=== PATIENT | male | born 1975 | race Caucasian/White ===

== ENCOUNTER 2019-08-12 14:52 | Emergency (ER) | payer SELFPAY ==
[2019-08-12 14:58] VITALS: BMI 31.1
--- NOTE | 2019-08-12 15:40 | PDOC ---
Attending Attestation - Resident Resident Name: Jaron Jackson - ED Attending Attestation I have performed the following: I have examined & evaluated the patient, The case was reviewed & discussed with the resident, I agree w/resident's findings & plan, Exceptions are as noted - HPI HPI: 08/12/19 15:35 44y M fell from a 10 ft ladder to the floor, landing on his feet without any loc , but notes the ladder fell hit him on his head. Denies any loc, dizziness, n/v , headache, vision changes, Pt complaining of pain to his lip because he clipped the ladder on his lip on the way down but landed on his L leg denies any neck pain, back pain, headache, n/v, vision changes, dental pain, abd pain, chest pain. hip pain. GENERAL: The patient is awake, alert, and fully oriented, Nontoxic - in no acute distress. HEAD: Normocephalic, atraumatic. EYES: extraocular movements intact, sclera anicteric, conjunctiva clear. ENT: Normal voice, Moist mucous membranes. NECK: Normal range of motion, supple, no focal midline tenderness in the cervical thoracic or lumbar spine LUNGS: Breath sounds equal, clear to auscultation bilaterally. No wheezes, no rhonchi, no rales. HEART: Regular rate and rhythm, normal S1 and S2 without murmur, rub or gallop. ABDOMEN: Soft, nontender, No guarding, no rebound. No CVA tenderness EXTREMITIES: Normal range of motion, no edema. Normal range of motion of bilateral hips, bilateral knees, mild diffuse tenderness and swelling in the Left ankle/hindfoot. Mild tenderness and bruising noted in the proximal R tib- fib NEUROLOGICAL: No facial assymetry, Normal speech, PSYCH: Normal mood, normal affect. SKIN: Warm, Dry, normal turgor, X-ray consistent with calcaneal fracture Will obtain CT of the heel. Bilateral tib fibs are normal without signs of fracture We will give the patient Percocet for pain Will discuss with Ortho - Medical Decision Making 08/12/19 18:[address] is consistent with a comminuted and mildly displaced calcaneal fracture. The patient now has significant edema and tenderness to palpation on the right medial aspect of the proximal tibia, there is also significant ecchymosis and tenderness seems much worse than earlier. His x-ray appeared to be negative however will obtain a CT of his proximal tibia and knee to rule out fracture based on his mechanism.
--- NOTE | 2019-08-12 16:06 | PDOC ---
History of Present Illness - General Chief Complaint: Injury Stated Complaint: LT FOOT INJURY Time Seen by Provider: 08/12/19 15:09 - History of Present Illness Initial Comments: 08/12/19 16:00 44 y/o M denies any significant past medical hx presents to the emergency room after falling from a ten foot ladder. he slipped of the ladder and landed on both feet. The ladder hit him on the right side of his head. He was able to ambulate but needed assistance to his car and drove himself to the ED. He denies striking his head on the floor, LOC , nausea, vomiting, headache, loss of sensation.He has pain primarily in his left foot, and some bruises on both shins bilaterally, Pain in his left foot is an 8/10 exacerbated by movement or bearing weight. Past History - Past Medical History Allergies/Adverse Reactions: Allergies Allergy/AdvReac Type Severity Reaction Status Date / Time No Known Allergies Allergy Verified 08/12/19 14:58 Home Medications: Ambulatory Orders Oxycodone HCl/Acetaminophen [Percocet 5-325 mg Tablet] 1 tab PO TID PRN #20 tablet MDD 3 tabs 08/12/19 COPD: No - Psycho Social/Smoking Cessation Hx Smoking History: Current every day smoker Information on smoking cessation initiated: No Review of Systems - Review of Systems Constitutional: No: Chills, Fever HEENTM: No: Eye Pain, Blurred Vision Respiratory: No: Cough, Shortness of Breath Cardiac (ROS): No: Chest Pain, Lightheadedness ABD/GI: No: Nausea, Vomiting : No: Burning, Dysuria Musculoskeletal: Yes: Joint Pain. No: Back Pain Integumentary: Yes: Bruising Neurological: No: Headache, Numbness *Physical Exam - Vital Signs Last Vital Signs Temp Pulse Resp BP Pulse Ox 98.1 F 86 18 123/81 99 08/12/19 14:54 08/12/19 14:54 08/12/19 14:54 08/12/19 14:54 08/12/19 14:54 - Physical Exam 08/12/19 16:07 PE: GENERAL: Awake, alert, and fully oriented, moderate distress HEAD: No signs of trauma, normocephalic, atraumatic EYES: PERRLA, EOMI, sclera anicteric, conjunctiva clear ENT: Auricles normal inspection, hearing grossly normal, nares patent, oropharynx clear without exudates. Moist mucosa. bruise on the upper lip NECK: Normal ROM, supple, no lymphadenopathy, JVD, or masses LUNGS: No distress, speaks full sentences, clear to auscultation bilaterally HEART: Regular rate and rhythm, normal S1 and S2, no murmurs, rubs or gallops, peripheral pulses normal and equal bilaterally. ABDOMEN: Soft, nontender, normoactive bowel sounds. No guarding, no rebound. No masses BACK: no spinal/ paraspinal tenderness EXTREMITIES : swollen left ankle, tenderness (heel, medial malleolus, along 3rd and 4th metatarsal). tender areas erythematous. peripheral pedal pulses 2+ bilaterally. NEUROLOGICAL: Cranial nerves II through XII grossly intact. Normal speech, no focal sensorimotor deficits SKIN: Warm, Dry, normal turgor, no rashes or lesions noted ED Treatment Course - LABORATORY CBC & Chemistry Diagram: 08/12/19 17:25 08/12/19 17:25 - RADIOLOGY Radiology Studies Ordered: Category Date Time Status FOOT-LEFT [RAD] Stat Radiology 08/12/19 15:42 Ordered FOOT-RIGHT [RAD] Stat Radiology 08/12/19 15:42 Ordered LEG TIB/FIB-LEFT [RAD] Stat Radiology 08/12/19 15:42 Ordered LEG TIB/FIB-RIGHT [RAD] Stat Radiology 08/12/19 15:42 Ordered - Medications Given in the ED: ED Medications Discontinued Medications Generic Name Dose Route Start Last Admin Trade Name Freq PRN Reason Stop Dose Admin Oxycodone/Acetaminophen 1 combo 08/12/19 15:42 08/12/19 15:52 Percocet 5/325 - PO 08/12/19 15:43 1 combo ONCE ONE Administration Medical Decision Making - Medical Decision Making 08/12/19 16:10 44 y/o M denies any significant past medical hx presents to the emergency room after falling from a ten foot ladder. fracture possible x-rays of both feet and tib-fib bilaterally Meds: 1 tab PO percocet for pain 08/12/19 19:13 x-rays calcaneus deformity could indicate fracture with ankle swelling no acute right foot pathology Intact tibial and fibula Pt given an additional 6mg of IV morphine for pain control doing a lot better after that pain osborne lower extremity CT read pending addtional views of tib/fibula ordere because of incresed swelling and ecchymosis around right proximal tibia still neurovascularly intact 2+ pedal pulses bilaterally. 08/12/19 20:51 lower extremity C Heavily comminuted, triplanar fracture of the left calcaneus, which is extremely fragmented in the region of the calcaneal beak and in the region of subarticular bone associated with the sinus tarsi and the posterior talar articulation. Loss of Boehler's angle noted. Fracture lines are also present along the posterior and inferior aspect of the calcaneus but with minimal displacement. No visible rupture of the Achilles tendon or of the plantar fascia. No evidence of tarsal coalition. The ankle mortise is stable in appearance. No midfoot or forefoot fracture. anteromedial aspect of right tibia has hematoma in subcutaneous fat, no air / gas present. 08/12/19 20:[address] bishop contacted for consult. 08/12/19 21:07 Dr. Bishop recommends transfer to [facility] for higher level of care as well as posterior splint before transfer [facility] contacted 08/12/19 21:10 Dr. Castaneda at [facility] said transfer is not necessary, recommends splinting and crutches, and orthopedic follow up for patient within a week. 08/12/19 22:31 Pt put in posterior splint. able to ambulate somewhat on crutches, but still complaining of 8/10 pain that h is preventing him from sleeping Declines to be admitted for pain control at this time. Additional meds 6mg morphine then 4mg morphine IV 4hrs later 08/12/19 23:00 30mg toradol IV. 10mg oxycodone PO reassess 08/12/19 23:20 Pt tolerating pain better willing to go home ambulated on crutches satisfactorily discharging home with po medications Discharge - Discharge Information Problems reviewed: Yes Clinical Impression/Diagnosis: Calcaneus fracture Qualifiers: Encounter type: initial encounter Calcaneus location: unspecified portion of calcaneus Fracture type: closed Fracture alignment: nondisplaced Laterality: left Qualified Code(s): S92.002A - Unspecified fracture of left calcaneus, initial encounter for closed fracture Condition: Stable Disposition: HOME - Admission No - Additional Discharge Information Prescriptions: Oxycodone HCl/Acetaminophen [Percocet 5-325 mg Tablet] 1 tab PO TID PRN #20 tablet MDD 3 tabs PRN Reason: Pain - Follow up/Referral - Patient Discharge Instructions Patient Printed Discharge Instructions: DI for Calcaneus Fracture Additional Instructions: You were seen in the ER after a fall and found to have a calcaneus fracture YOur leg has been placed in a splint. make sure to keep it dry Do not bear weight on the affected leg and use crutches to move around you have been prescribed pain medications. Take as prescribed Follow up with an orthopedic surgeon this tomorrow to set up further consultation for possible surgery Keep leg elevated when at rest. preferably above your heart. Ice the affected area\ RETURN if your foot becomes numb fevers, chills the pain is getting worse. - Post Discharge Activity
[2019-08-12] MEDS ORDERED: morphine CARPU-JECT 4 MG/1 ML DISP.SYRIN IVPUSH ONE ×2 (16:56→20:58)
[2019-08-12] MEDS ORDERED: morphine SULFATE 4 MG/ML VIAL ONE ×2 (17:17→21:00)
[2019-08-12] MEDS ORDERED: MORPHINE SULFATE 2 MG/ML VIAL ONE (17:18)
[2019-08-12 17:43] LABS: BASO % 0.3 % (0-2.0); EOS % 0.7 % (0-4.5); HEMATOCRIT 46.2 % (35.4-49); HEMOGLOBIN 15.7 GM/dL (11.7-16.9); LYMPH % 12.4 % (8-40); MCH 31.8 pg (25.7-33.7); MCHC 33.9 g/dl (32.0-35.9); MEAN CELL VOLUME 93.9 fl (80-96); MEAN PLT VOLUME 7.5 fl (7.5-11.1); MONO % 4.7 % (3.8-10.2); NEUT % 81.9 % (42.8-82.8); PLATELET COUNT 321 K/MM3 (134-434); RBC 4.92 M/mm3 (4.00-5.60); RDW 13.3 % (11.9-15.9); WHITE BLOOD COUNT 15.4 K/mm3 (4.0-10.0)
[2019-08-12 18:03] LABS: INR 0.97 (0.83-1.09); PROTHROMBIN TIME (PATIENT) 11.4 SEC (9.7-13.0)
[2019-08-12 18:05] LABS: ACTIVATED PTT 31.5 SECONDS (25.2-36.5)
[2019-08-12 18:20] LABS: ALBUMIN 4.2 g/dl (3.4-5.0); BILIRUBIN,TOTAL 0.4 mg/dL (0.2-1); CALCIUM 9.3 mg/dL (8.5-10.1); POTASSIUM 4.1 mmol/L (3.5-5.1); TOT PROT 7.6 g/dl (6.4-8.2)
[2019-08-12] MEDS ORDERED: KETOROLAC TROMETHAMINE 30 MG/1 ML VIAL IVPUSH ONE (22:28)
[2019-08-12] MEDS ORDERED: oxyCODONE HCL 5 MG TABLET PO ONE (22:29)
[2019-08-12] MEDS ORDERED: oxyCODONE HCL 5 MG TABLET ONE (22:50)
[2019-08-12] MEDS ORDERED: KETOROLAC TROMETHAMINE 30 MG/1 ML VIAL ONE (22:50)
[2019-08-12 23:31] VITALS: BP 143/81; PULSE 89; TEMP 97.8
== END 2019-08-13 00:10 | disposition home or self-care (01) ==
LOC: JER 14:52
PROC: 2W3RX1Z Immobilization of Left Lower Leg using Splint (ICD-10-PCS; principal; 2019-08-12)
PROC: 3E0333Z Introduction of Anti-inflammatory into Peripheral Vein, Percutaneous Approach (ICD-10-PCS; 2019-08-12)
PROC: 3E033NZ Introduction of Analgesics, Hypnotics, Sedatives into Peripheral Vein, Percutaneous Approach (ICD-10-PCS; 2019-08-12)
DX: S92.002A Unspecified fracture of left calcaneus, initial encounter for closed fracture (principal); W20.8XXA Other cause of strike by thrown, projected or falling object, initial encounter; Y93.89 Activity, other specified; Y92.89 Other specified places as the place of occurrence of the external cause; F17.210 Nicotine dependence, cigarettes, uncomplicated
CPT/HCPCS: 36415; 73590-TC-LT-FY; 73590-TC-RT-FY; 73630-TC-LT; 73630-TC-RT-FY; 73700-TC-RT; 80053; 85025; 85610; 85730; 86850; 86900; 86901; 99284-25